=== PATIENT | male | born 1955 | race African-American/Black ===

== ENCOUNTER 2018-02-13 21:50 | Emergency (ER) | payer SELFPAY ==
[~2018-02-13] VITALS: Ht 180.3 cm; Wt 115.0 kg
[2018-02-14] MEDS ORDERED: HYDROCODONE/ACETAMINOPHEN 5/325MG TABLET PO ONE (00:15)
[2018-02-14] MEDS ORDERED: KETOROLAC 60MG/2ML VIAL IM ONE (00:15)
[2018-02-14 04:51] VITALS: BP 122/55
== END 2018-02-14 05:27 | disposition home or self-care (01) ==
LOC: ER 22:16
DX: M54.2 Cervicalgia (principal); M25.512 Pain in left shoulder; I10 Essential (primary) hypertension; E11.9 Type 2 diabetes mellitus without complications; G62.9 Polyneuropathy, unspecified; M48.02 Spinal stenosis, cervical region; M25.78 Osteophyte, vertebrae; W20.8XXA Other cause of strike by thrown, projected or falling object, initial encounter; Y93.89 Activity, other specified; Y92.094 Garage of other non-institutional residence as the place of occurrence of the external cause
CPT/HCPCS: 72040; 72125; 96372; 99284; J1885; Z7610